=== PATIENT | female | born 1980 | race African-American/Black ===

== ENCOUNTER 2022-08-07 08:36 | Outpatient (CLI) | payer OTHER, SELFPAY | END 2022-08-07 08:37 | disposition home or self-care (01) | LOC: ANHLAB 08:39 | PROVIDERS: Visit Provider Obstetrics & Gynecology Gynecology | DX: E55.9 Vitamin D deficiency, unspecified (principal) | CPT/HCPCS: 36415; 82306 ==

== ENCOUNTER 2023-03-25 08:28 | Outpatient (CLI) | payer OTHER, SELFPAY ==
[2023-03-25 09:48] LABS: Vitamin D 25 Hydroxy 44.7 ng/mL
== END 2023-03-25 08:29 | disposition home or self-care (01) ==
LOC: ANHLAB 08:30
PROVIDERS: Visit Provider Obstetrics & Gynecology Gynecology
DX: E55.9 Vitamin D deficiency, unspecified (principal)
CPT/HCPCS: 36415; 82306

== ENCOUNTER 2023-11-03 06:56 | Outpatient (CLI) | payer OTHER, SELFPAY ==
[2023-11-06 06:46] LABS: Progesterone 0.9 ng/mL (***)
== END 2023-11-03 06:57 | disposition home or self-care (01) ==
LOC: ANHLAB 06:58
PROVIDERS: Visit Provider Obstetrics & Gynecology Gynecology
DX: N97.0 Female infertility associated with anovulation (principal)
CPT/HCPCS: 36415; 84144

== ENCOUNTER 2023-12-10 11:10 | Outpatient (CLI) | payer OTHER, SELFPAY ==
[2023-12-12 01:19] LABS: Progesterone 8.4 ng/mL
== END 2023-12-10 11:11 | disposition home or self-care (01) ==
PROVIDERS: Advanced Practice Midwife; PCP Nurse Practitioner Family; Visit Provider Obstetrics & Gynecology Gynecology
DX: N97.0 Female infertility associated with anovulation (principal)
CPT/HCPCS: 36415; 84144

== ENCOUNTER 2024-01-02 10:47 | Outpatient (CLI) | payer OTHER, SELFPAY ==
[2024-01-04 03:08] LABS: Progesterone 37.8 ng/mL
== END 2024-01-02 10:48 | disposition home or self-care (01) ==
LOC: ANHLAB 10:49
PROVIDERS: PCP Nurse Practitioner Family; Visit Provider Obstetrics & Gynecology Gynecology
DX: N97.9 Female infertility, unspecified (principal)
CPT/HCPCS: 36415; 84144

== ENCOUNTER 2024-02-02 07:03 | Outpatient (CLI) | payer OTHER, SELFPAY ==
[2024-02-05 04:33] LABS: Progesterone 19.7 ng/mL
== END 2024-02-02 07:04 | disposition home or self-care (01) ==
PROVIDERS: PCP Nurse Practitioner Family; Visit Provider Obstetrics & Gynecology Gynecology
DX: N97.9 Female infertility, unspecified (principal)
CPT/HCPCS: 36415; 84144

== ENCOUNTER 2024-02-28 07:36 | Outpatient (CLI) | payer OTHER, SELFPAY | END 2024-02-28 07:37 | disposition home or self-care (01) | LOC: ANHLAB 07:38 | PROVIDERS: PCP Nurse Practitioner Family; Visit Provider Obstetrics & Gynecology Gynecology | DX: N97.9 Female infertility, unspecified (principal) | CPT/HCPCS: 36415; 84144 ==

== ENCOUNTER 2024-04-26 08:47 | Outpatient (CLI) | payer OTHER, SELFPAY ==
[2024-04-26 10:22] LABS: Vitamin D 25 Hydroxy 47.6 ng/mL
[2024-04-27 05:08] LABS: Progesterone 49.8 ng/mL
== END 2024-04-26 08:48 | disposition home or self-care (01) ==
PROVIDERS: PCP Nurse Practitioner Family; Visit Provider Obstetrics & Gynecology Gynecology
DX: E55.9 Vitamin D deficiency, unspecified (principal); Z31.49 Encounter for other procreative investigation and testing; N97.0 Female infertility associated with anovulation
CPT/HCPCS: 36415; 82306; 84144

== ENCOUNTER 2024-05-10 09:33 | Outpatient (CLI) | payer OTHER, SELFPAY ==
--- NOTE | ~2024-05-10 | XR_ITS ---
EXAMINATION: XR hysterosalpingogram DATE: 05/10/2024 11:03 INDICATION: Infertility testing. TECHNIQUE: Fluoroscopy was performed by the radiologist during contrast infusion into the endometrial cavity of the uterus by the primary physician. Fluoroscopy exposure time was 0.8 minutes. The total number of images was 7. FINDINGS: The intrauterine cavity is normal in morphology. The fallopian tubes are enlarged. There is normal free intra-abdominal spillage of contrast on the left. Contrast is seen late in the right adn exa. IMPRESSION: 1. Bilateral hydrosalpinx. 2. Normal free intraperitoneal spillage of contrast on the left. 3. Contrast is seen late in the right adnexa. It is not clear if this contrast is from the right fall opian tube or from crossover from the left adnexa. Reviewed, dictated and finalized at location A. IMPRESSION: 1. Bilateral hydrosalpinx. 2. Normal free intraperitoneal spillage of contrast on the left. 3. Contrast is seen late in the right adnexa. It is not clear if this contrast is from the right fallopian tube or from crossover from the left adnexa.
[2024-05-10 10:40] LABS: Beta HCG Quantitative < 2.39 mIU/ML
== END 2024-05-10 09:34 | disposition home or self-care (01) ==
LOC: ANHIMG 09:36
PROVIDERS: PCP Nurse Practitioner Family; Visit Provider Obstetrics & Gynecology Gynecology
DX: Z31.49 Encounter for other procreative investigation and testing (principal)
CPT/HCPCS: 36415; 58340; 74740; 84702; Q9966

== ENCOUNTER 2024-11-27 08:55 | Outpatient (CLI) | payer OTHER, SELFPAY ==
--- OUTSIDE RECORDS SUMMARY | 2024-11-27 08:59 | XMS_ITS | Clinical Summary ---
Author Organization [facility] Care Team Providers Care Master Fisher Name Role Phone Unavailable Primary Care Provider Unavailabl e Social History Tobacco Use Types Packs/Day Years Used Date Smoking Tobacco: Never Assessed Comments Unknown Sex and Gender Information Value Date Recorded Sex Assigned at Not on file Legal Sex Female 2:09 PM CDT Gender Identity Not on file Sexual Orientation Not on file Plan of Treatment Health Maintenance Due Date Last Done Comments Hepatitis C Virus (HCV) Screening 1982 TdaP Immunization 1982 Hepatitis B Immunization (1 of 3 - 19+ 3-dose series) 2001 Pap Smear 2003 Cervical Cancer Screening (CCS) 2012 HPV/Cotest 2012 Discussion re Starting/Frequ ency of Mammograms 2022 Influenza Immunization (#1) 2024 SARS-COV-2 Immunization ( season) 2024 Respiratory Syncytial Virus (RSV) Immunization (Adult) (1 - 1-dose 75+ series) 2057 Meningococcal Immunization (ACWY) Aged Out No longer eligible based on patient's age to complete this topic Pneumococcal Immunization Combined Aged Out No longer eligible based on patient's age to complete this topic Rotavirus Immunization Aged Out No lo nger eligible based on patient's age to complete this topic
--- OUTSIDE RECORDS SUMMARY | 2024-11-27 08:59 | XMS_ITS | Clinical Summary ---
Author Organization [facility] Address [facility] [place] [address] Care Team Providers Care Rn Surgery Icu Name Role Phone Monico Ko MD Unavailable Edna Pennington NP Primary Care Provider + [phone] Allergies No known active allergies Medications ondansetron 4 MG disintegrating tablet DISSOLVE 2 TABLETS IN MOUTH EVERY 12 HOURS FOR 14 DAYS 0 Active vitamin D2, ergocalciferol, (DRISDOL) 67280 UNITS capsule Take 1 capsule (50,000 Units total) by mouth once a week. 3 Active Misc. Devices (QUAD CANE) MiscIndications:Lum bar radiculopathy,Myofa scial pain 1 Device by Does not apply route as needed. 1 each 4 Active losartan (COZAAR) 50 MG tabletIndications:E ssential hypertension Take 1 tablet (50 mg total) by mouth daily. 90 tablet 2 4 Active tiZANidine (ZANAFLEX) 2 MG tabletIndications:I ntractable muscle spasm take 1 tablet by mouth every 8 hours as needed 30 tablet 2 4 Active lidocaine (LIDODERM) 5 %Indications:Lumbar radiculopathy Place 1 patch onto the skin daily. Remove & Discard patch within 12 hours or as directed by 30 patch 5 4 Active rimegepant (NURTEC) 75 MG disintegrating tabletIndications:E pisodic migraine Take 1 tablet (75 mg total) by mouth daily as needed for Migraine. 8 tablet 11 4 Active erenumab-aooe (AIMOVIG) 140 mg/mL injection (autoinjector)Indic ations:Chronic migraine w/o aura w/o status migrainosus, not intractable Inject 1 mL (140 mg total) into the skin every 30 (thirty) days. 1 pen. 5 4 Active hydrALAZINE HCl 100 MG Tab Take 1 tablet by mouth 3 (three) times daily. 270 tablet 1 4 Active hydroCHLOROthiazide (HYDRODIURIL) 50 MG tablet Take 1 tablet (50 mg total) by mouth every morning. 90 tablet 1 5 Active amitriptyline (ELAVIL) 75 MG tabletIndications:C ervical radiculopathy Take 1 tablet by mouth once daily 30 tablet 5 Active dilTIAZem ER (TIAZAC) 240 MG 24 hr capsule Take 1 capsule (240 mg total) by mouth daily. 90 capsule 1 5 Active metoprolol succinate ER (TOPROL-XL) 200 MG 24 hr tablet Take 0.5 tablets (100 mg total) by mouth 2 (two) times daily. 90 tablet 1 5 Active traMADol (ULTRAM) 50 MG tabletIndications:C hronic Pain Take 1 tablet (50 mg total) by mouth every 8 (eight) hours as needed. Indications: Chronic Pain 90 tablet 2 5 Active ibuprofen (MOTRIN) 800 MG tabletIndications:C ervical radiculopathy Take 1 tablet (800 mg total) by mouth every 8 (eight) hours as needed. 60 tablet 5 Active topiramate (TOPAMAX) 100 MG tabletIndications:I ntractable chronic migraine without aura and with status migrainosus Take 1.5 tablets (150 mg total) by mouth 2 (two) times daily. 270 tablet 3 5 09/22/19 26 Active Active Problems Problem Noted Date Diagnosed Date Myalgia 07/22/2024 Chronic migraine without aura 11/01/2022 Obesity (BMI 30-39.9) 06/20/2022 Overweight (BMI 25.0-29.9) 02/08/2022 Neck pain 04/26/2021 Cervical radiculopathy 08/02/2020 Overview (08/02/2020): Added automatically from request for surgery [id number] Lumbar radiculopathy 08/02/2020 Myofascial pain 08/02/2020 Vasovagal syncope 10/26/2019 Sinus tachycardia 01/27/2018 Essential hypertension Resolved Problems Problem Noted Date Diagnosed Date Resolved Date Intractable chronic migraine without aura and with status migrainosus 02/14/2022 06/17/2023 CHF (congestive heart failur e) ([facility]) 01/06/2018 Encounters Date Type Department Care Team Description 11/11/2024 11:00 AM CDT - 11/11/2024 11:20 AM CDT Surgery [facility] [place] [address] [id number] Gabriela Baird MD INJECTION EPIDURAL STEROID [id number] 11/11/2024 10:04 AM CDT - 11/11/2024 10:52 AM CDT Hospital Encounter [facility] [place] [address] [id number] Gabriela Baird MD Discharge Disposition: Home or Self Care (Routine Discharge) 11/11/2024 Travel 10/11/2024 Prep for Procedure [facility] [place] [place] [address] [id number] Nilson Durán, BALANCE TRUER 09/22/2024 7:40 AM BOOT LINER MAKER [facility] - [address], [address] [place] [address] Dennise Hooker MD Botox Procedure (Botox 155 u) 09/22/2024 Scan [facility] Scanned, [facility] 09/22/2024 Travel 09/03/2024 8:00 AM BOOT LINER MAKER Office Visit [facility] [address] [facility], [address] [place] [address] Dennise Hooker MD Follow Up 09/03/2024 Travel from Last 3 Months Immunizations Immunization Administration Dates Next Due Dtap (Generic) 04/23/1989,10/23/1987,04/04/1987 ,1982 MMR (MMRII) 04/19/1993,08/30/1987 Polio Opv (Generic) 03/27/1988,04/04/1987,1982 Family History Medical History Relation Comments No Known Problems Brother No Known Problems Father No Known Problems Mother Denies premature family history of CVD Other No Known Problems Paternal Grandfather No Known Problems Paternal Grandmother No Known Problems Sister Relation Status Comments Brother Alive Father Alive Mother Alive Other Paternal Grandfather Alive Paternal Grandmother Alive Sister Alive Social History Tobacco Use Types Packs/Day Years Used Date Smoking Tobacco: Never Smokeless Tobacco: Never Tobacco Cessation:Counseling Given: Yes Alcohol Use Standard Drinks/Week Comments No 0 (1 standard drink = 0.6 oz pur e alcohol) PHQ-2 Answer Date Recorded Patient Health Questionnaire-2 Score 0 09/03/2024 Education Answer Date Recorded What is the highest level of school you have completed or the highest degree you have received? 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 Not on file Not on file Last Filed Vital Signs Vital Sign Reading Time Taken Comments Blood Pressure 136/98 11/11/2024 10:48 AM CDT Pulse 82 11/11/2024 10:16 AM CDT Temperature 36.6 C (97.8 F) 11/11/2024 10:16 AM CDT Respiratory Rate 16 11/11/2024 10:48 AM CDT Oxygen Saturation 100% 11/11/2024 10:48 AM CDT Inhaled Oxygen Concentration - - Weight 77 kg (169 lb 12.8 oz) 11/11/2024 10:16 A M CDT Height 160 cm (5' 3 ) 11/11/2024 10:16 AM CDT Body Mass Index 30.08 11/11/2024 10:16 AM CDT Plan of Treatment Upcoming Encounters Date Type Department Care Team (Late st Contact Info) Description 12/21/2024 7:40 AM CDT [facility] - [facility] [address], [address] [place] [address] Dennise Hooker MD 3 [place] [address] 01/03/2025 8:00 AM CDT Office Visit [facility] [address], [address] [place] [address] Dennise Hooker MD 3 [facility] [place] [address] 01/18/2025 2:00 PM CDT Office Visit [facility] THREE [facility], [address] [place] [address] Monico Ko MD Three [facility]. [address] [place] [address] Health Maintenance Due Date Last Done Comments Annual Physical 1985 DTaP, Tdap and Td Vaccines (5 - Tdap) 1993 04/23/1989, 10/23/1987, 04/04/1987, Additional history exists Hepatitis B Vaccines (1 of 3 - 19+ 3-dose series) 2001 COVID-19 Vaccine ( season) 2024 Hepatitis C 11/12/2052 Postponed from 2000 (Patient Refused) PHQ-2 (Physician [place]) Completed 09/03/2024 HPV Vaccines Aged Out No longer eligi ble based on patient's age to complete this topic Meningococcal B Vaccine Aged Out No l onger eligible based on patient's age to complete this topic Meningococcal Vaccine Aged Out No florina dianne eligible based on patient's age to complete this topic Pneumococcal Vaccine: Pediatrics (0 to 5 Years) and At-Risk Patients (6 to 49 Years) Aged Out No longer eligible based on patient's age to complete this topic RSV Immunizations Under 20 Months Aged Out No longer eligible based on patient's age to complete this topic Procedures Procedure Name Priority Date/Time Associated Diagnosis Comments NJX INTERLAMINAR CRV/THRC 11/11/2024 10:38 AM CDT Cervical radiculopathy XR PAIN CLINIC C-ARM Today 11/11/2024 10:19 AM CDT from Last 3 Months Results * XR PAIN CLINIC C-ARM (11/11/2024 10:19 AM CDT) Narrative Radiology, Technologist - 11/11/2024 10:19 AM CDT This report does not contain a radiologist's interpretation. Please review associated procedure and/or operative report. Gabriela Baird MD GENERAL IMAGING Final Result from Last 3 Months Insurance [facility] [address] [place] [id number] Care Teams Rn Surgery Icu Relationship Specialty [place] [address] [facility] [address], [place] [address] PCP - General Nurse Practitioner Family 02/05/22 Monico Ko MD [facility] [address] [place] [address] [place] Disposition Clerk CARDIOVASCULAR DISEASE 12/24/17
--- OUTSIDE RECORDS SUMMARY | 2024-11-27 08:59 | XMS_ITS | Encounter Summary ---
Author Organization [facility] Address [facility] [place] [address] Care Team Providers Care Cupola Repairer Name Role Phone Monico Ko MD Unavailable Edna Pennington NP Primary Care Provider + [phone] Encounter Details Date Type Department Care Team (Late st Contact Info) Description 03/27/2022 [employer] Message Enc [facility] Family & Internal Medicine [address] [address] [facility], [facility] Provider disability Social History Tobacco Use Types Packs/Day Years Used Date Smoking Tobacco: Never Smokeless Tobacco: Never Alcohol Use Standard Drinks/Week Comments No 0 (1 standard drink = 0.6 oz pur e alcohol) PHQ-2 Answer Date Recorded PHQ-2 Score - If the patient scores above 3, please move on to questions 3-9 2 02/08/2022 Education Answer Date Recorded What is the highest level of school you have completed or the highest degree you have received? 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 No / Unsure 03/11/2022 2:35 PM CDT documented as of this encounter Plan of Treatment Upcoming Encounters Date Type Department Care Team (Late st Contact Info) Description 12/21/2024 7:40 AM CDT Office Visit [facility] [address] [facility], [address] [place] [address] Dennise Hooker MD 3 [facility] [place] [address] 01/03/2025 8:00 AM CDT Office Visit [facility] [address] [facility], [address] [place] [address] Dennise Hooker MD [address] [facility] [place] [address] 01/18/2025 2:00 PM CDT Office Visit [facility] THREE [facility], [address] [place] [address] Monico Ko MD [facility]. [address] [place] [address] documented as of this encounter Visit Diagnoses Not on filedocumented in this encounter Additional Health Concerns Assessment Noted Time PHQ-9 Depression Total Score: 12 022 2:36 PM CDT documented as of this encounter Care Teams Cupola Repairer Relationship Specialty Start [place] [address] [address] [place], [place] [id number] PCP - General Nurse Practitioner Family 02/05/22 Monico Ko MD [facility]. [address] [place] [address] [place] Product/Device Technologist CARDIOVASCULAR DISEASE 12/24/17 documented as of this encounter
--- OUTSIDE RECORDS SUMMARY | 2024-11-27 08:59 | XMS_ITS | Encounter Summary ---
Author Organization [facility] Address [facility] [place] [address] Care Team Prov[address] Care [address] Oiler Name Role Phone Benja Kaba DAIRY EQUIPMENT REPAIRER-C Primary Care Provider + [phone] Monico Ko MD Unavailable Edna Pennington DAIRY EQUIPMENT REPAIRER Primary Care Provider + [phone] Edna Pennington DAIRY EQUIPMENT REPAIRER Primary Care Provider + [phone] None, Provider Primary Care Provider Unavaila ble Edna Pennington DAIRY EQUIPMENT REPAIRER Primary Care Provider + [phone] Encounter Details Date Type Department Care Team (Late st Contact Info) Description 01/07/2018 Abstract [facility] at [address] [address] Jaun Francois MA Social History Tobacco Use Types Packs/Day Years Used Date Smoking Tobacco: Never Smokeless Tobacco: Never Alcohol Use Standard Drinks/Week Comments No 0 (1 standard drink = 0.6 oz pur e alcohol) Comments Unknown Sex and Gender Information Value Date Recorded Sex Assigned at Male 08/26/2024 7:44 AM ADMISSIONS REPRESENTATIVE Legal Sex Female 7:01 PM CDT Gender Identity Not on file Sexual Orientation Straight 11/23/2021 10 :12 AM CDT 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 [place] [address] 01/03/2025 8:00 AM CDT [facility] [address] [facility], [address] [place] [address] Dennise Hooker MD [address] [facility] [place] [address] 01/18/2025 2:00 PM CDT Office Visit [facility] [address] [facility] [place] [address] Monico Ko MD Three [facility]. [address] [place], [place] [address] documented as of this encounter Procedures Procedure Name Priority Date/Time Associated Diagnosis Comments CBC (OUTSIDE LAB) Routine 10/22/2017 COMPREHENSIVE METABOLIC PANEL Routine 10/22/2017 HEMOGLOBIN, GLYCOSYLATED Routine 10/22/2017 THYROXINE, FREE (FT4) Routine 10/22/2017 THYROID STIM HORMONE TSH Routine 10/22/2017 documented in this encounter Results * CBC (OUTSIDE LAB) (10/22/2017) WBC 5.6 HGB 13.0 HCT 42 PLT 236 10/22/2017 us Doc [facility] Abstract LAB-OUTSIDE/ABSTRACTED Final Result * THYROID STIM HORMONE, TSH (10/22/2017) TSH 1.01 10/22/2017 us Doc [facility] Abstract LABORATORY Final Result * (ABNORMAL) COMPREHENSIVE METABOLIC PANEL (10/22/2017) SODIUM S/P/B 141 POTASSIUM S/P/B 4.3 CO2 28.5 CHLORIDE S/P/B 101 GLUCOSE 93 mg/dL CALCIUM S/P/B 9.8 BUN 11 CREATININE S/P/B 0.60 0.5 - 1.0 EGFR AFR. AMER. 147(A) <=90 EGFR NON-AFR. AMER. 121(A) <=90 ALKALINE PHOSPHATASE S/P/B 151 ALT 21 AST 15 BILIRUBIN TOTAL S/P/B 0.2 ALBUMIN S/P/B 4.8 3.5 - 5.0 TOTAL PROTEIN S/P/B 8.1 10/22/2017 us Doc [facility] Abstract LABORATORY Final Result * HEMOGLOBIN, GLYCOSYLATED (10/22/2017) HGB A1C 5.6 10/22/2017 us Doc [facility] Abstract LABORATORY Final Result * THYROXINE, FREE (FT4) (10/22/2017) FREE T4 0.97 10/22/2017 us Doc [facility] Abstract LABORATORY Final Result documented in this encounter Visit Diagnoses Not on filedocumented in this encounter Additional Health Concerns Infection Onset Date Last Indicated Resolved Time COVID-19 Rule Out 07/25/2020 07/25/2020 07/26/2020 11:52 PM ADMISSIONS REPRESENTATIVE documented as of this encounter Care Teams Road Oiler Relationship Specialty Start Date End Date Benja Kaba NP-C [address] [place] [address] PCP - General FAMILY PRACTICE 12/02/17 06/02/19 Edna Pennington NP [address] [place] [address] PCP - General Nurse Practitioner Family 06/03/19 08/06/20 Edna Pennington NP [address] [place] [address] PCP - General Nurse Practitioner Family 08/07/20 10/01/21 Ronit Gregorio MD PCP - General 10/02/21 02/04/22 [place] [address] [address] PCP - General Nurse Practitioner Family 02/05/22 Monico Ko MD [facility] [address] [place] [address] Guera Green Building Engineer CARDIOVASCULAR DISEASE 12/24/17 documented as of this encounter
--- OUTSIDE RECORDS SUMMARY | 2024-11-27 08:59 | XMS_ITS | Clinical Summary ---
Author Organization [facility] Address [address] [place] [address] Phone Care Team Providers Care Ice Guard Skating Rink Name Role Phone Unavailable Primary Care Provider Unavailabl e Encounters Date Type Department Care Team Description 10/20/2024 External Device Data [facility] ABSTRACTION Provider, Abstract 10/09/2024 External Device Data [facility] ABSTRACTION Provider, Abstract 10/09/2024 External Device Data [facility] ABSTRACTION Provider, Abstract 10/06/2024 External Device Data [facility] ABSTRACTION Provider, Abstract 09/22/2024 External Device Data [facility] ABSTRACTION Provider, Abstract from Last 3 Months Social History Tobacco Use Types Packs/Day Years Used Date Smoking Tobacco: Never Assessed Comments Unknown Sex and Gender Information Value Date Recorded Sex Assigned at Not on file Legal Sex Female 11:36 AM CDT Gender Identity Not on file Sexual Orientation Not on file Plan of Treatment Health Maintenance Due Date Last Done Comments DTAP/TDAP/TD VACCINES (1 - Tdap) 2001 HEPATITIS B VACCINES (1 of 3 - 19+ 3-dose series) 2001 HPV/Cotest (21-29) 2003 CERVICAL CANCER SCREENING 2012 HPV/Cotest (30-65) 2012 PAP SMEAR 2012 BREAST CANCER SCREENING 2022 INFLUENZA VACCINE (#1) 2024 HPV VACCINES Aged Out No longer eligi ble based on patient's age to complete this topic
--- OUTSIDE RECORDS SUMMARY | 2024-11-27 08:59 | XMS_ITS | Encounter Summary ---
Author Organization [facility] Address [address] [place] [address] Care Team Providers Care Seafood Preparer Name Role Phone Edna Pennington Yenifer MAGNETIC RESONANCE IMAGING DIRECTOR-LENDING ADVISOR Primary Care Provider Encounter Details Date Type Department Care Team (Late st Contact Info) Description 04/25/2015 Lab Requisition [facility] [address] [place] [id number] Unknown, Provider Social History Tobacco Use Types Packs/Day Years Used Date Smoking Tobacco: Never Assessed Comments Unknown Sex and Gender Information Value Date Recorded Sex Assigned at Not on file Legal Sex Female 2:21 PM CDT Gender Identity Not on file Sexual Orientation Not on file documented as of this encounter Plan of Treatment Not on file documented as of this encounter Procedures Procedure Name Priority Date/Time Associated Diagnosis Comments D-DIMER STAT 04/25/2015 2:25 PM CDT documented in this encounter Results * D-DIMER (04/25/2015 2:25 PM CDT) D-Dimer 0.26 0.17 - 0.5 mg/L FEU 04/25/2015 2:45 PM CDT [facility] Blood BLOOD SPECIMEN / Unknown Venipuncture / Unknown 04/25/2015 2:25 PM CDT 04/25/2015 2:25 PM CDT Narrative [facility] - 04/25/2015 2:45 PM CDT The [employer] D-Dimer assay is intended for use as an aid in diagnosis of venous thromboembolism [(VTE): deep vein thrombosis (DVT), pulmonary embolism (PE), and disseminated intravascular coagulation (DIC)], and has received FDA approval to exclude VTE in patients with low or moderate pretest probability of PE or DVT (per Wells' rules). At a clinical cut-off value 0.50 mg/L FEU, the Negative Predictive Value of this assay is 99.8% for excluding PE and 100% for excluding DVT. A very low percentage of patients with VTE may yield D-Dimer results below the cut-off value. An elevated D-Dimer result has low specificity (40.4% for PE, 35.5% for DVT) and is a poor predictor of VTE. An elevated D-Dimer result may indicate DIC in the appropriate clinical setting. Results of this test should always be interpreted in conjunction with the patient's medical history, clinical presentation, and other findings. us Provider Unknown LAB - COAGULATION ORDERABLES Fi nal Result Performing Organization Address City/State/[facility] Co de Phone Number [facility] [address] [place] [address] documented in this encounter Visit Diagnoses Not on filedocumented in this encounter Care Teams Seafood Preparer Relationship Specialty Start Date End Date Edna Pennington, MAGNETIC RESONANCE IMAGING DIRECTOR-LENDING ADVISOR [address] [address] PCP - General Nurse Practitioner Family 02/12/24 documented as of this encounter
--- OUTSIDE RECORDS SUMMARY | 2024-11-27 08:59 | XMS_ITS | Encounter Summary ---
Author Organization [facility] Address [facility] [place] [address] Care Team Providers Care Telehealth Nurse Educator Name Role Phone Monico Ko MD Unavailable Edna Pennington NP Primary Care Provider + [phone] Encounter Details Date Type Department Care Team (Late st Contact Info) Description 03/27/2022 [employer] Message Enc [facility] Family & Internal Medicine [address] [address] [place] Provider disability Social History Tobacco Use Types [...] Sex Assigned at Male 08/26/2024 7:44 AM HEAD OF ENGLISH Legal Sex Female 7:01 PM CDT Gender [...] Description 12/21/2024 7:40 AM CDT Office Visit [facility] [address] [facility], [address] [place] [address] Dennise Hooker MD [address] [facility] [place] [address] 01/03/2025 8:00 AM CDT Office Visit [facility] [address] [facility], [address] [place] [address] Dennise Hooker MD [address] [facility] [place] [address] 01/18/2025 2:00 PM CDT Office Visit [facility], [address] [place] [address] Monico Ko MD [facility]. [address] [place] [address] documented as of this encounter Visit Diagnoses Not on filedocumented in this encounter Additional Health Concerns Assessment Noted Time PHQ-9 Depression Total Score: 12 022 2:36 PM CDT documented as of this encounter Care Teams Telehealth Nurse Educator Relationship Specialty Start [place] [address] [place], [place] [id number] PCP - General Nurse Practitioner Family 02/05/22 Monico Ko MD [facility]. [address] [place] [address] [place] Flight Controls Engineer CARDIOVASCULAR DISEASE 12/24/17 documented as of this encounter
--- OUTSIDE RECORDS SUMMARY | 2024-11-27 08:59 | XMS_ITS | Clinical Summary ---
Author Organization [facility] Address [address] [place] [address] Care Team Providers Care Security Project Manager Name Role Phone Edna Pennington APRN-SIDING APPLICATOR Primary Care Provider Source Comments [facility],non-owned Affiliates and Associated Physician Practices is amultiple site organization consisting of ambulatory clinics and hospital sitesin [place], [place], [place] and [place]. This disclosure is being madepursuant to the Care Everywhere program and may not contain all information available regarding this patient. Last updated 18.[facility] Allergies No known active allergies Medications * Be aware that medications may not be up to date on this document. Alwaysverify current medications with the patient. ondansetron, disintegrating , (ZOFRAN ODT) 8 MG tablet DISSOLVE 1 TABLET IN MOUTH EVERY 8 HOURS FOR 7 DAYS Active metoprolol succinate XL 24hr (TOPROL XL) 200 MG tablet TAKE 1 2 (ONE HALF) TABLET BY MOUTH TWICE DAILY 1 Active ibuprofen (MOTRIN) 800 MG tablet 1 Active HYDROcodone-ac etaminophen (NORCO) 5-325 MG tablet TAKE 1 TO 2 TABLETS BY MOUTH EVERY 6 HOURS NEEDED FOR PAIN 0 Active vitamin D, ergocalciferol , (DRISDOL) 1.25 MG (60599 UT) capsule Take 1 (one) capsule by mouth every 7 days 1 Active dilTIAZem ER 24hr (TIAZAC) 240 MG capsule Take 1 (one) capsule by mouth once daily 1 Active cyclobenzaprin e (FLEXERIL) 10 MG tablet 1 Active albuterol HFA (PROVENTIL;JAQUAN TOLIN;PROAIR) 108 (90 Base) MCG/ACT inhaler Take 2 (two) puffs by mouth every 4 hours 1 Active traMADol (ULTRAM) 50 MG tablet Take 1 (one) tablet by mouth every 6 hours as needed for Pain Active hydrALAZINE (APRESOLINE) 50 MG tablet Take 1 (one) tablet by mouth 4 times daily Active amitriptyline (Elavil) 75 MG tablet Take 1 (one) tablet by mouth every 24 hours 3 Active topiramate (Topamax) 50 MG tablet Take 1 (one) tablet by mouth 2 times daily 3 Active hydrALAZINE (Apresoline) 100 MG tablet Take 1 (one) tablet by mouth 3 times daily 3 Active tiZANidine (Zanaflex) 2 MG tablet Take 1 (one) tablet by mouth every 8 hours as needed for Muscle Spasms 4 Active rimegepant (Nurtec ODT) 75 MG tablet Take 75 mg by mouth once daily as needed 4 Active losartan (Cozaar) 50 MG tablet Take 1 (one) tablet by mouth once daily Active lidocaine (Lidoderm) 5 % patch APPLY 1 PATCH TOPICALLY ONCE DAILY REMOVE AND DISCARD PATCH WITHIN 12 HOURS OR DIRECTED BY DOCTOR 4 Active hydroCHLOROthi azide (Hydrodiuril) 50 MG tablet Take 1 (one) tablet by mouth every morning Active erenumab-aooe (Aimovig) 140 MG/ML auto injector pen Inject 1 mL subcutaneously every 30 days 4 Active gentamicin (Garamycin) 0.1 % cream Apply to affected area once daily apply to affected area Active Clomid 50 MG tablet TAKE 2 TABLETS BY MOUTH ONCE DAILY ON DAYS 5-9 OF CYCLE 4 Active Active Problems Problem Noted Date Diagnosed Date Neck pain 04/26/2021 Immunizations Immunization Administration Dates Next Due DTAP, HISTORIC VACCINE 04/23/1989,10/23/1987,08/1986,1982 MMR 04/19/1993,08/30/1987 POLIO OPV 03/27/1988,04/04/1987,1982 Social History Tobacco Use Types Packs/Day Years Used Date Smoking Tobacco: Never Smokeless Tobacco: Never Tobacco Cessation:Counseling Given: Not Answered Alcohol Use Standard Drinks/Week Comments Not Currently 0 (1 standard drink = 0.6 oz pur e alcohol) Comments No Sex and Gender Information Value Date Recorded Sex Assigned at Not on file Legal Sex Female 2:21 PM CDT Gender Identity Not on file Sexual Orientation Not on file Last Filed Vital Signs Vital Sign Reading Time Taken Comments Blood Pressure 133/82 05/06/2024 8:27 AM CDT Pulse 73 05/06/2024 8:27 AM CDT Temperature 36.4 C (97.6 F) 05/06/2024 8:27 AM CDT Respiratory Rate - - Oxygen Saturation 99% 05/06/2024 8:27 AM CDT Inhaled Oxygen Concentration - - Weight 78.9 kg (174 lb) 05/06/2024 8:27 AM CDT Height 160 cm (5' 3 ) 05/06/2024 8:27 AM CDT Body Mass Index 30.82 05/06/2024 8:27 AM CDT Plan of Treatment Health Maintenance Due Date Last Done Comments LIPID TESTING 1982 PAP SMEAR 1982 DTAP/TDAP/TD VACCINES (5 - Tdap) 1993 04/23/1989, 10/23/1987, 04/04/1987, Additional history exists HIV SCREENING 1997 HEPATITIS C SCREENING 09/13/2000 HEPATITIS B VACCINE (1 of 3 - 19+ 3-dose series) 2001 SCREENING FOR DIABETES 02/12/2024 COVID-19 VACCINE ( - 2023- season) 2024 DEPRESSION SCREENING 08/04/2024 INFLUENZA VACCINE (Season Ended) 2025 MAMMOGRAM 12/17/2025 12/18/2023, 12/02, 12/05/2022 ZOSTER VACCINE (1 of 2) 2032 HIB VACCINE Aged Out No longer eligi ble based on patient's age to complete this topic HPV VACCINE Aged Out No longer eligi ble based on patient's age to complete this topic MENINGOCOCCAL (Group B) VACCINE SHARED DECISION-MAKING Aged Out No longer eligible based on patient's age to complete this topic MENINGOCOCCAL GROUPS A/C/Y/W VACCINE Aged Out No longer eligible based on patient's age to complete this topic PNEUMOCOCCAL VACCINE Aged Out No long er eligible based on patient's age to complete this topic Insurance [facility] Care Teams Security Project Manager Relationship Specialty Start Date End Date Edna Pennington, SECURITY TRAINER-SIDING APPLICATOR [id number] [address] PCP - General Nurse Practitioner Family 02/12/24
--- OUTSIDE RECORDS SUMMARY | 2024-11-27 08:59 | XMS_ITS | Encounter Summary ---
Author Organization [facility] Address [facility] [place] [address] Care Team Providers Care Shipfitter Apprentice Name Role Phone Monico Ko MD Unavailable Edna Pennington NP Primary Care Provider + [phone] Encounter Details Date Type Department Care Team (Late st Contact Info) Description 03/18/2024 ePatient[employer]indert Message Enc [facility] Wound & Ostomy [address] [address] [address], [facility] Provider Wound Culture Results Social History Tobacco Use Types Packs/Day Years Used Date Smoking Tobacco: Never Smokeless Tobacco: Never Alcohol Use Standard Drinks/Week Comments No 0 (1 standard drink = 0.6 oz pur e alcohol) PHQ-2 Answer Date Recorded Patient Health Questionnaire-2 Score 0 08/12/2023 Education Answer Date Recorded What is the highest level of school you have completed or the highest degree you have received? 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 [address] [facility], [address] [place] [address] Dennise Hooker MD [address] [place] [address] 01/03/2025 8:00 AM CDT Office Visit [facility] Multispecialty Care - [facility] [address] [facility], [address] [place] [address] Dennise Hooker MD [address] [place] [address] 01/18/2025 2:00 PM CDT Office Visit [facility], [address] [place] [address] Monico Ko MD Three [facility]. [address] [place] [address] documented as of this encounter Visit Diagnoses Not on filedocumented in this encounter Additional Health Concerns Assessment Noted Time PHQ-9 Depression Total Score: 8 11/13/19 23 10:01 AM CDT documented as of this encounter Care Teams Shipfitter Apprentice Relationship Specialty Start [place] [address] [address] [place] [address] PCP - General Nurse Practitioner Family 02/05/22 Monico Ko MD Three [facility]. [address] [place] [address] [facility] CARDIOVASCULAR DISEASE 12/24/17 documented as of this encounter
[2024-11-27 11:24] LABS: Vitamin D 25 Hydroxy 28.4 ng/mL
[2024-11-27 15:58] LABS: Progesterone 25.6 ng/mL
== END 2024-11-27 08:56 | disposition home or self-care (01) ==
LOC: ANHLAB 08:57
PROVIDERS: PCP Nurse Practitioner Family; Visit Provider Obstetrics & Gynecology Gynecology
DX: E55.9 Vitamin D deficiency, unspecified (principal); N97.9 Female infertility, unspecified
CPT/HCPCS: 36415; 82306; 84144

== ENCOUNTER 2024-12-25 07:50 | Outpatient (CLI) | payer MEDICARE, SELFPAY ==
--- OUTSIDE RECORDS SUMMARY | 2024-12-25 07:55 | XMS_ITS | Clinical Summary ---
Author Organization [facility] [employer] Address [address] [place] [address] Care Team Providers Care Size Roller Operator Name Role Phone Edna Pennington APRN-HOME HEALTH LVN Primary Care Provider Source Comments [facility] [employer],non-owned Affiliates and Associated Physician Practices is amultiple site organization consisting of ambulatory clinics and hospital sitesin [place], [place], [place] and [place]. This disclosure is being madepursuant to the Care Everywhere program and may not contain all information available regarding this patient. Last updated 18.[facility] Allergies No known active allergies Medications * [...] vitamin D, ergocalciferol , (DRISDOL) 1.25 MG (23695 UT) capsule Take 1 (one) capsule by [...] 8:27 AM CDT Height 160 cm (5' 3) 05/06/2024 8:27 AM CDT Body Mass Index [...] patient's age to complete this topic Insurance [facility] Care Teams Size Roller Operator Relationship Specialty Start Date End Date Edna Pennington, COUNTER CHECKER-HOME HEALTH LVN [address] [address] PCP - General Nurse Practitioner Family 02/12/24
--- OUTSIDE RECORDS SUMMARY | 2024-12-25 07:55 | XMS_ITS | Encounter Summary ---
Author Organization [facility] Address [address] [place] [address] Care Team Providers Care Superintendent Automotive Name Role Phone Edna Pennington Yenifer TAB BUILDER-WINCH DERRICK OPERATOR Primary Care Provider Encounter Details Date Type Department Care Team (Late st Contact Info) Description 04/25/2015 Lab Requisition [facility] [address] [place] [id number] Unknown, Provider Social History Tobacco Use Types [...] 0.5 mg/L FEU 04/25/2015 2:45 PM CDT [facility] Blood BLOOD SPECIMEN / Unknown Venipuncture / Unknown 04/25/2015 2:25 PM CDT 04/25/2015 2:25 PM CDT Narrative [facility] - 04/25/2015 2:45 PM CDT The [...] ORDERABLES Fi nal Result Performing Organization Address City/State/[facility] Co de Phone Number [facility] [address] [place] [address] documented in this encounter Visit Diagnoses Not on filedocumented in this encounter Care Teams Superintendent Automotive Relationship Specialty Start Date End Date Edna Pennington, TAB BUILDER-WINCH DERRICK OPERATOR [address] [address] PCP - General Nurse Practitioner Family 02/12/24 documented as of this encounter
--- OUTSIDE RECORDS SUMMARY | 2024-12-25 07:55 | XMS_ITS | Clinical Summary ---
Author Organization [facility] Care Team Providers Care Art Sales Consultant Name Role Phone Unavailable Primary Care Provider [...]
--- OUTSIDE RECORDS SUMMARY | 2024-12-25 07:55 | XMS_ITS | Clinical Summary ---
Author Organization [facility] Address [address] [place] [address] Phone Care Team Providers Care Deck Engine Operator Name Role Phone Unavailable Primary Care Provider Unavailabl e Encounters Date Type Department Care Team Description 12/22/2024 External Device Data [facility] ABSTRACTION Provider, Abstract 10/20/2024 External Device Data [facility] ABSTRACTION Provider, [...]
[2024-12-25 16:03] LABS: Progesterone. 38.1 ng/mL
== END 2024-12-25 07:51 | disposition home or self-care (01) ==
LOC: ANHLAB 07:53
PROVIDERS: Visit Provider Obstetrics & Gynecology Gynecology
DX: N97.9 Female infertility, unspecified (principal)
CPT/HCPCS: 36415; 84144

== ENCOUNTER 2025-01-24 07:41 | Outpatient (CLI) | payer MEDICARE, SELFPAY ==
[2025-01-25 01:34] LABS: Progesterone. 16.4 ng/mL
== END 2025-01-24 07:42 | disposition home or self-care (01) ==
PROVIDERS: Visit Provider Obstetrics & Gynecology Gynecology
DX: N97.9 Female infertility, unspecified (principal)
CPT/HCPCS: 36415; 84144

== ENCOUNTER 2025-02-21 08:04 | Outpatient (CLI) | payer MEDICARE, SELFPAY ==
--- OUTSIDE RECORDS SUMMARY | 2025-02-21 08:16 | XMS_ITS | Encounter Summary ---
Author Organization [facility] Address [address] [place] [address] Care Team Providers Care River Rat Name Role Phone Unavailable Primary Care Provider Unavailabl e Encounter Details Date Type Department Care Team (Late st Contact Info) Description 02/16/2025 External Device Data [facility] ABSTRACTION Provider, Abstract NO ADDRESS ON FILE Social History Tobacco Use Types Packs/Day Years Used Date Smoking Tobacco: Never Assessed Comments Unknown Sex and Gender Information Value Date Recorded Sex Assigned at Not on file Legal Sex Female 11:36 AM CDT Gender Identity Not on file Sexual Orientation Not on file documented as of this encounter Plan of Treatment Not on file documented as of this encounter Visit Diagnoses Not on filedocumented in this encounter
--- OUTSIDE RECORDS SUMMARY | 2025-02-21 08:16 | XMS_ITS | Clinical Summary ---
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 narrowing without significantcentral canal stenosis. C6-7: Concentric disc osteophyte complex most prominent posteriorly acrossthe midline indenting the ventral subarachnoid space and abutting theventral surface of the cord with mild central canal narrowing. Again leftgreater than right uncinate hypertrophy with mild left greater than rightforaminal narrowing. C7-T1: Minimal posterior osteophytic ridging and left greater than rightuncinate hypertrophy with no significant canal or foraminal stenosis. IMPRESSION: 1. Concentric disc osteophyte complex most prominent posteriorly acrossthe midline at C6-7 abutting the ventral surface of the cord with mildcentral canal narrowing and mild left greater than right foraminalnarrowing at C6-7. Minimal subtle increased signal in the ventralcervical cord at C6 vertebral level may be related to CSF pulsationartifact or could represent minimal cord edema, ischemia or less likelyminimal myelomalacia. 2. Tiny posterior central disc protrusion at C5-6 with very mild leftgreater than right foraminal narrowing at C5-6. 3. Foci of gas in the dorsal left paraspinal soft tissues at C3 and C4ovbrpi, likely related to recent spinal injections; please correlateclinically. 4. Stable mild diffuse enlargement of the thyroid without significantencroachment on the airway. Referred By: Interpreted By: Ebony Felix MD, 01/31/2025 9:53 PM us Arley Koehler DO MRI Final Res ult * CT CERV SPINE WO CON (01/31/2025 5:41 PM CDT) Anatomical Region Laterality Modality Spine Computed Tomogra phy 01/31/2025 7:15 PM CDT Impressions 01/31/2025 7:20 PM CDT IMPRESSION: 1. Scattered foci of gas within the upper left dorsal paraspinal soft tissues, possibly related to stated history of recent spinal injections. Please correlate clinically. 2. Multilevel degenerative changes in the cervical spine, as detailed above. 3. Diffuse enlargement of the thyroid. Could correlate with thyroid function tests. Referred By: Interpreted By: Sina Vidal MD, 01/31/2025 7:15 PM Narrative 01/31/2025 7:20 PM [address]T [address] [address] EXAMINATION: CT Cervical Spine without contrast CLINICAL HISTORY: Left arm pain. Recent cervical spine injections. COMPARISON: MRI cervical spine 11/28/2023 TECHNIQUE: CT examination of the cervical spine was performed without contrast. Axial and multiplanar reformatted images were obtained. A dose lowering technique was used for this procedure, which may include, but is not limited to, dose reduction technique, automated exposure control, the use of iterative reconstruction, and ALARA (As Low As Reasonably Achievable) / Image Gently techniques. FINDINGS: There are foci of gas noted within the upper left dorsal paraspinal soft tissues, possibly related to stated history of recent spinal injections. Reversal of the mid to lower cervical lordosis. Slight rotation of C1 relative to C2. Otherwise the cervical vertebral alignment, vertebral body heights, and facet alignment are maintained. Degenerative changes are again noted in the cervical spine with disc degeneration, endplate/uncovertebral osteophytes, and facet hypertrophy evident. Imaged portions of the soft tissues reveal diffuse enlargement of the thyroid gland. C2-C3: Small uncovertebral osteophytes. Mild facet hypertrophy. No canal or foraminal narrowing. C3-C4: Mild disc bulge. Uncovertebral osteophytes. Mild facet hypertrophy. Indentation of the ventral thecal sac. Minimal foraminal narrowing. C4-C5: Disc bulge/central protrusion. Small uncovertebral osteophytes. Mild facet hypertrophy. Indentation of the ventral thecal sac. No significant osseous foraminal narrowing. C5-C6: Disc osteophyte complex. Uncovertebral osteophytes. Facet hypertrophy. Flattening of the ventral thecal sac. Minimal foraminal narrowing. C6-C7: Disc osteophyte complex. Uncovertebral osteophytes. Facet hypertrophy. Partial effacement of the ventral thecal sac and encroachment of the ventral cord. Minimal foraminal narrowing. C7-T1: Endplate osteophytes. Disc bulge. Facet hypertrophy. No osseous canal or foraminal narrowing. Procedure Note Sina Vidal MD - 01/31/2025 [facility] [address] [place], [place] [address] EXAMINATION: CT Cervical Spine without contrast CLINICAL HISTORY: Left arm pain. Recent cervical spine injections. COMPARISON: MRI cervical spine 11/28/2023 TECHNIQUE: CT examination of the cervical spine was performed withoutcontrast. Axial and multiplanar reformatted images were obtained. A dose lowering technique was used for this procedure, which may include,but is not limited to, dose reduction technique, automated exposurecontrol, the use of iterative reconstruction, and ALARA (As Low AsReasonably Achievable) / Image Gently techniques. FINDINGS: There are foci of gas noted within the upper left dorsal paraspinal softtissues, possibly related to stated history of recent spinal injections.Reversal of the mid to lower cervical lordosis. Slight rotation of [id number] to C2. Otherwise the cervical vertebral alignment, vertebral bodyheights, and facet alignment are maintained. Degenerative changes areagain noted in the cervical spine with disc degeneration,endplate/uncovertebral osteophytes, and facet hypertrophy evident. Imagedportions of the soft tissues reveal diffuse enlargement of the thyroidgland. C2-C3: Small uncovertebral osteophytes. Mild facet hypertrophy. No canalor foraminal narrowing. C3-C4: Mild disc bulge. Uncovertebral osteophytes. Mild facet hypertrophy.Indentation of the ventral thecal sac. Minimal foraminal narrowing. C4-C5: Disc bulge/central protrusion. Small uncovertebral osteophytes.Mild facet hypertrophy. Indentation of the ventral thecal sac. Nosignificant osseous foraminal narrowing. C5-C6: Disc osteophyte complex. Uncovertebral osteophytes. Facethypertrophy. Flattening of the ventral thecal sac. Minimal foraminalnarrowing. C6-C7: Disc osteophyte complex. Uncovertebral osteophytes. Facethypertrophy. Partial effacement of the ventral thecal sac and encroachmentof the ventral cord. Minimal foraminal narrowing. C7-T1: Endplate osteophytes. Disc bulge. Facet hypertrophy. No osseouscanal or foraminal narrowing. IMPRESSION: 1. Scattered foci of gas within the upper left dorsal paraspinal softtissues, possibly related to stated history of recent spinal injections.Please correlate clinically. 2. Multilevel degenerative changes in the cervical spine, as detailedabove. 3. Diffuse enlargement of the thyroid. Could correlate with thyroidfunction tests. Referred By: Interpreted By: Sina Vidal MD, 01/31/2025 7:[address] Final Result * XR PAIN CLINIC C-ARM (01/28/2025 10:24 AM CDT) Narrative Radiology, Technologist - 01/28/2025 10:24 AM CDT This report does not contain a radiologist's interpretation. Please review associated procedure and/or operative report. Gabriela Baird MD GENERAL IMAGING Final Result * ELECTROCARDIOGRAM (01/18/2025 2:05 PM CDT) 01/18/2025 2:05 PM CDT Narrative [facility] - 01/22/2025 6:06 AM CDT [facility] Test Date: 2025-01-18 Pat Name: [facility] Department: 112 Room: Gender: Female Guideman: : 1980 Requested By: SHANNON CLEMONS Order Number: [id number] Reading MD: Shannon Clemons Measurements Intervals [place] Rate: 95 P: 53 OR: 136 QRS: 51 QRSD: 73 T: 38 QT: 342 QTc: 430 Interpretive Statements SINUS RHYTHM Procedure Note Shannon Clemons MD - 01/22/2025 [facility], [facility] Test Date: 2025-01-18 Pat Name: [facility] Department: 112 Room: Gender: Female Guideman: : 1980 Requested By: SHANNON CLEMONS Order Number: [id number] Reading MD: Shannon Clemons Measurements Intervals [place] Rate: 95 P: 53 OR: 136 QRS: 51 QRSD: 73 T: 38 QT: 342 QTc: 430 Interpretive Statements SINUS RHYTHM us Shannon Clemons MD PROCEDURES-ORDERABLE NO CHARGE F inal Result [facility] * MG SCREENING W ELVIS MELINDA DIGI (12/21/2024 9:43 AM CDT) Anatomical Region Laterality Modality Breast Bilateral Mammography 12/21/2024 2:47 PM CDT Impressions 12/21/2024 2:49 PM CDT IMPRESSION: No significant interval change. No mammographic evidence of malignancy. RECOMMENDATION: Routine ScreeningBilateral OVERALL IMAGING ASSESSMENT: ACR BI-RADS 2 - BENIGN FINDING(S). Ordered By: EDNA PENNINGTON Interpreted By: Alfonso Russell, 12/21/2024 2:47 PM Narrative 12/21/2024 2:49 PM CDT [facility] [address] [place] [address] EXAMINATION: MG SCREENING W ELVIS MELINDA DIGI INDICATIONS: Screening TECHNIQUE: Digital full field CC and MLO screening mammography bilaterally to include 3-D Tomosynthesis technique. This study was read with the assistance of a computer-aided detection system. HISTORY: No reported breast complaint. No documented personal or first degree family history of breast cancer. No documented prior breast procedure. COMPARISON: 12/18/2023 and 12/05/2022. TISSUE DENSITY: The breasts are heterogeneously dense, which may obscure small masses. FINDINGS: Few scattered typically benign round calcifications. No suspicious microcalcification or mass. No developing asymmetry or architectural distortion. No axillary adenopathy. us Edna Pennington 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 MAMMO Final Result * (ABNORMAL) BASIC METABOLIC PANEL (12/21/2024 8:31 AM CDT) GLUCOSE 100(H) 70 - 99 MG/DL 12/21/2024 9:25 AM CDT [facility] BUN 15 7 - 18 MG/DL 12/21/2024 9:25 AM CDT [facility] CREATININE S/P/B 0.97 0.55 - 1.02 MG/DL 12/21/2024 9:25 AM CDT [facility] SODIUM S/P/B 136 136 - 145 MMOL/L 12/21/2024 9:25 AM CDT [facility] POTASSIUM S/P/B 4.2 3.5 - 5.1 MMOL/L 12/21/2024 9:25 AM CDT [facility] CHLORIDE S/P/B 106 97 - 115 MMOL/L 12/21/2024 9:25 AM CDT [facility] CO2 24.5 21 - 32 MMOL/L 12/21/2024 9:25 AM CDT [facility] CALCIUM S/P/B 9.4 8.5 - 10.1 MG/DL 12/21/2024 9:25 AM CDT [facility] ANION GAP 5.5 2 - 10 MMOL/L 12/21/2024 9:25 AM T [facility] BUN CREATININE RATIO 15.5 6 - 26 12/21/2024 9:25 AM T [facility] GFR ESTIMATE 75(L) >90 ML/MIN/1.7 3 M2 12/21/2024 9:25 AM T [facility] Comment: NOTE: eGFR is not calculated for patients <18 years of age or gender unknown. This is an estimated GFR calculation using the new CKD EPI creatinine equation without race and so does not require a correction factor for race. This estimated GFR should not be used for calculating drug doses. 12/21/2024 8:31 AM CDT Monique Camp [facility]- [facility] Final Resu lt [facility] [address] [place] [address], * OUTSIDE LAB (SCAN ORDER) (11/27/2024) Only the most recent of2 resultswithin the time period is included. 11/27/2024 [facility] Scanned SCANNING Final Resu lt from Last 3 Months Insurance [place] [address] [place] [address] Advance Directives * Full Code (Latest Code Status on File) Date Activated Date Inactivated Comments 01/31/2025 11:40 PM 02/01/2025 2:30 PM Care Teams Farmworker Pullet [employer] Relationship Specialty [place] [address] [facility] [address] [place] [address] PCP - General Nurse Practitioner Family 02/05/22 Shannon Clemons MD [facility] [address] [place] [address] [employer] Link Knitting Machine Operator CARDIOVASCULAR DISEASE 12/24/17
--- OUTSIDE RECORDS SUMMARY | 2025-02-21 08:16 | XMS_ITS | Encounter Summary ---
Author Organization [facility] Address [facility] [place] [address] Care Team Providers Care Chassis Wirer Name Role Phone Benja Kaba CASINO ASSISTANT MANAGER-C Primary Care Provider + [phone] Monico Ko MD Unavailable Edna Pennington CASINO ASSISTANT MANAGER Primary Care Provider + [phone] Edna Pennington CASINO ASSISTANT MANAGER Primary Care Provider + [phone] None, Provider Primary Care Provider Unavaila ble Edna Pennington CASINO ASSISTANT MANAGER Primary Care Provider + [phone] Encounter Details Date Type Department Care Team (Late st Contact Info) Description 01/07/2018 [facility] at [address] [phone] Jaun Francois MA Social History Tobacco Use [...] Description 03/15/2025 7:40 AM CDT Office Visit [facility] [address] [facility], [address] [place] [phone] Dennise Hooker MD 3 [facility] [place] [address] 05/05/2025 8:00 AM CDT Office Visit [facility] [address] [facility], [address] [place] [phone] Dennise Hooker MD 3 [facility] [place] [address] 07/19/2025 11:00 AM INCIDENT RESPONSE ENGINEER Office Visit [facility] [address] [facility], [address] [place] [phone] Khadijah Orr APRN 3 [facility] [address] [place] [address] 01/23/2026 8:30 AM CDT Office Visit [facility], [address] [place], [place] [address] Monique Camp, ANP-BC Three [facility]. [address] [place], [place] [phone] documented as of this encounter Procedures Procedure [...] Result * THYROID STIM HORMONE, TSH (10/22/2017) Pathologist [facility] TSH 1.01 10/22/2017 us Doc [facility] Abstract [...] Rule Out 07/25/2020 07/25/2020 07/26/2020 11:52 PM INCIDENT RESPONSE ENGINEER documented as of this encounter Care Teams Chassis Wirer Relationship Specialty Start Date End Date Benja Kaba NP-C [address] [place] [address] PCP - General FAMILY PRACTICE 12/02/17 06/02/19 Edna Pennington NP [address] [place] [address] PCP - General Nurse Practitioner Family 06/03/19 08/06/20 Edna Pennington NP [address] [place] [address] PCP - General Nurse Practitioner Family 08/07/20 10/01/21 Ronit Gregorio MD PCP - General 10/02/21 02/04/22 Edna Pennington, CASINO ASSISTANT MANAGER [address] [address] PCP - General Nurse Practitioner Family 02/05/22 Monico Ko MD [facility] [address] [place] [address] Commissioner CARDIOVASCULAR DISEASE 12/24/17 documented as of this encounter
--- OUTSIDE RECORDS SUMMARY | 2025-02-21 08:16 | XMS_ITS | Clinical Summary ---
Author Organization [facility] Care Team Providers Care Puppy Sitter Name Role Phone Unavailable Primary Care Provider [...]
--- OUTSIDE RECORDS SUMMARY | 2025-02-21 08:16 | XMS_ITS | Encounter Summary ---
Author Organization [facility] Address [facility] [place] [address] Care Team Providers Care Head Paper Tester Name Role Phone Monico Ko MD Unavailable Edna Pennington NP Primary Care Provider + [phone] Encounter Details Date Type Department Care Team (Late st Contact Info) Description 12/21/2024 [employer] Message Enc [facility] THREE [facility] [address] [place], [place] [phone] Monique Camp, ANP-BC Three [facility]. [address] [place] [address] Lab Results Social History Tobacco Use Types Packs/Day [...] Description 03/15/2025 7:40 AM CDT Office Visit [facility] [address] [facility], [address] [place] [phone] Dennise Hooker MD [address] [place] [address] 05/05/2025 8:00 AM CDT Office Visit [facility] [address] [facility], [address] [place] [phone] Dennise Hooker MD [address] [place] [address] 07/19/2025 11:00 AM COMMISSARY REPRESENTATIVE Office Visit [facility] [address] [facility], [address] [place] [phone] Khadijah Orr APRN 3 [facility] [address] [place] [address] 01/23/2026 8:30 AM CDT Office Visit [facility] [facility] [address] [place], [place] [address] Monique Camp, ANP- Three [facility]. [address] [place] [address] documented as of this encounter Visit Diagnoses Not on filedocumented in this encounter Additional Health Concerns Assessment Noted Time PHQ-9 Depression Total Score: 8 11/13/19 10:01 AM CDT documented as of this encounter Care Teams Head Paper Tester Relationship Specialty Start [place] [address] [facility] [address], [place] [address] PCP - General Nurse Practitioner Family 02/05/22 Monico Ko MD [facility] [address] [place] [address] [place] Lobster Fisherman CARDIOVASCULAR DISEASE 12/24/17 documented as of this encounter
--- OUTSIDE RECORDS SUMMARY | 2025-02-21 08:16 | XMS_ITS | Clinical Summary ---
Author Organization [facility] Address [address] [place] [address] Phone Care Team Providers Care Rn Bsn Name Role Phone Unavailable Primary Care Provider Unavailabl e Encounters Date Type Department Care Team Description 02/16/2025 External Device Data ST[facility] ABSTRACTION Provider, Abstract 02/16/2025 External Device Data [facility] ABSTRACTION Provider, Abstract 02/16/2025 External Device Data [place] ABSTRACTION Provider, Abstract 01/18/2025 External Device Data [place] ABSTRACTION Provider, Abstract 12/28/2024 External Device Data [place] ABSTRACTION Provider, Abstract 12/22/2024 External Device Data [place] ABSTRACTION Provider, Abstract 12/22/2024 External Device Data [place] ABSTRACTION Provider, [...] Health Maintenance Due Date Last Done Comments HPV VACCINES (1 - 3-dose series) 1997 DTAP/TDAP/TD VACCINES (1 - Tdap) 2001 HEPATITIS B VACCINES (1 of 3 - 19+ 3-dose series) 09/04 HPV/Cotest (21-29) 2003 CERVICAL CANCER SCREENING 2012 HPV/Cotest (30-65) 2012 PAP SMEAR 2012 BREAST CANCER SCREENING 2022 INFLUENZA VACCINE (#1) 2025
--- OUTSIDE RECORDS SUMMARY | 2025-02-21 08:16 | XMS_ITS | Encounter Summary ---
Author Organization [facility] Address [facility] [place] [address] Care Team Providers Care Scarfing Machine Operator Name Role Phone Monico Ko MD Unavailable Edna Pennington NP Primary Care Provider + [phone] Encounter Details Date Type Department Care Team (Late st Contact Info) Description 03/27/2022 [facility] Message Enc [facility] Family & Internal Medicine [address] [phone] [employer], [facility] Provider disability Social History Tobacco [...] Description 03/15/2025 7:40 AM CDT Office Visit [facility] [address] [facility], [address] [place] [phone] Dennise Hooker MD 3 [facility] [place] [address] 05/05/2025 8:00 AM CDT Office Visit [facility] [address] [facility], [address] [place] [address] Dennise Hooker MD 3 [facility] [place] [address] 07/19/2025 11:00 AM SPECIAL INVESTIGATOR Office Visit [facility] [address] [facility], [address] [place] [phone] Khadijah Orr, KISHORE [address] [facility] [address] [place] [address] 01/23/2026 8:30 AM CDT Office [facility] THREE [facility], [address] [place], [place] [phone] Monique Camp, [facility]- Three [facility]. [address] [place] [address] documented as of this encounter Visit Diagnoses Not on filedocumented in this encounter Additional Health Concerns Assessment Noted Time PHQ-9 Depression Total Score: 12 022 2:36 PM CDT documented as of this encounter Care Teams Scarfing Machine Operator Relationship Specialty Start [place] [address] [facility] [address] [place] [address] PCP - General Nurse Practitioner Family 02/05/22 Monico Ko MD [facility] [address] [place] [address] [place] Engine Buildup Mechanic CARDIOVASCULAR DISEASE 12/24/17 documented as of this encounter
--- OUTSIDE RECORDS SUMMARY | 2025-02-21 08:16 | XMS_ITS | Encounter Summary ---
Author Organization [facility] Address Formerly [facility] [place] [address] Care Team Providers Care Assistant Manager Name Role Phone Monico Ko MD Unavailable Edna Pennington NURSING SPECIALIST Primary Care Provider + [phone] Encounter Details Date Type Department Care Team (Late st Contact Info) Description 03/18/2024 Connect Controlst Message Enc [facility] [address] [facility] [place] [address] [employer], [facility] Provider Wound Culture Results Social History Tobacco [...] Description 03/15/2025 7:40 AM CDT Office Visit [facility] - [facility] [address] [facility], [address] [place] [address] Dennise Hooker MD [address] [facility] [place] [address] 05/05/2025 8:00 AM CDT Office Visit [facility] [address] [facility], [address] [place] [address] Dennise Hooker MD [address] [facility] [place] [address] 07/19/2025 11:00 AM GREENHOUSE TECHNICIAN Office Visit [facility] [address] [facility], [address] [place] [address] hKadijah Orr APRN [address] [facility] [address] [place] [address] 01/23/2026 8:30 AM CDT Office Visit [facility] [address] [facility] [place] [address] Monique Camp, ANP- [facility]. [address] [place] [address] documented as of this encounter Visit Diagnoses Not on filedocumented in this encounter Additional Health Concerns Assessment Noted Time PHQ-9 Depression Total Score: 8 11/13/19 23 10:01 AM CDT documented as of this encounter Care Teams Assistant Manager Relationship Specialty Start Date End Date Edna Pennington, NURSING SPECIALIST [address] [facility] [address] [place] [address] PCP - General Nurse Practitioner Family 02/05/22 Monico Ko MD [facility]. [facility] [address] [place] [address] [place] Office Services Clerk CARDIOVASCULAR DISEASE 12/24/17 documented as of this encounter
== END 2025-02-21 08:05 | disposition home or self-care (01) ==
LOC: ANHLAB 08:12
PROVIDERS: Visit Provider Obstetrics & Gynecology Gynecology
DX: N97.9 Female infertility, unspecified (principal)
CPT/HCPCS: 84144

== ENCOUNTER 2025-06-18 13:56 | Outpatient (CLI) | payer MEDICARE, SELFPAY | END 2025-06-18 13:57 | disposition home or self-care (01) | LOC: ANHLAB 13:57 | PROVIDERS: Visit Provider Obstetrics & Gynecology Gynecology | DX: N97.9 Female infertility, unspecified (principal) | CPT/HCPCS: 84144 ==